=== PATIENT | female | born 1975 | race Caucasian/White ===

== ENCOUNTER 2023-05-17 08:35 | Outpatient (CLI) | payer OTHER, SELFPAY ==
[2023-05-17 09:10] LABS: Hematocrit 40.3 % (37.0-47.0); Hemoglobin 12.2 g/dL (12.0-15.0)
== END 2023-05-17 08:36 | disposition home or self-care (01) ==
LOC: ANHSURGERY 08:39
PROVIDERS: Anesthesiology; PCP Family Medicine; Visit Provider Surgery
DX: Z01.818 Encounter for other preprocedural examination (principal); D64.9 Anemia, unspecified
CPT/HCPCS: 36415; 85014; 85018

== ENCOUNTER 2023-05-18 00:36 | Day surgery (SDC) | payer OTHER, SELFPAY ==
[2023-05-16 09:33] VITALS: BMI 30.2
--- NOTE | 2023-05-16 09:44 | PC.NURSE ---
Addendum entered by Leisa Amaya RN 05/16/23 09:51: PT STATES SHE HAS RECEIVED INSTRUCTIONS FROM DR GREEN OFFICE FOR PREP, INSTRUCTED PT TO BE SURE TO FOLLOW THESE INSTRUCTIONS Original Note: Report to the Outpatient Waiting Room, entrance under the green pavilion located off [facility], at time _1200 on date _05/18/23. Planned Procedure Time: _1400. Time changes happen often and if your time is changed the preop area will call you the afternoon before. - You and your visitor will be asked to self-screen and do not enter if you have any COVID symptoms. - A mask is optional within the hospital at this time. Patients may have clear liquids (water, carbonated beverages, clear teas, apple juice) until 3 hours prior to surgery with a maximum of 20 ounces. - No food from midnight until time of surgery - Infants may have breast milk until 4 hours before surgery, infant formula 6 hours prior to surgery. - Children will be allowed to drink immediately following surgery. If applicable, please bring a bottle or sippy cup to assist with drinking. Juice, water, soda, and popsicles are readily available. For infants on formula, please bring formula the day of surgery. Pacifiers are allowed. Take the following medications with a SIP of water the morning of surgery: NONE DO NOT STOP ANY OF YOUR OTHER PRESCRIPTION MEDICATIONS PRIOR TO SURGERY ?EXCEPT THE FOLLOWING Medications to discontinue per physician VITAMINS/ SUPPLIMENTS Date to take last dose___05/16/23 Please no make-up, nail latvian, hairspray, perfume, deodorant, or body powder the day of surgery. No jewelry (including any body piercings) or valuables the day of surgery, leave them at home. Please take a shower or bath the night before, or the morning of, surgery with HIBICLENS antibacterial soap. Wear comfortable, loose fitting clothing. Children are encouraged to wear pajamas. - Jewelry must be removed prior to entering the operating room. Rings and piercings that are not removed may be cut off. - The hospital will not accept responsibility for valuables. - Please leave all valuables, including medications, at home the day of surgery. If you are going home after surgery, a licensed driver salesman must drive you home. - NO public transportation without another adult if you receive anesthesia. - We recommend that an adult stay with you for 24 hours following discharge. - We also recommend that you do not drive, make important decision, drink alcoholic beverages, or take any drugs that were not prescribed by your health care provider for at least 24 hours after your discharge time. For Pediatric surgeries, we recommend two adults accompany the child home. Follow any additional instructions given to you from your surgeon. If you or anyone in your household have experienced Covid symptoms in the past week, please notify your surgeon or the nurse liaison at the phone number below for possible testing. Telephone instructions given to PATIENT_and asked if any additional questions and then verbalized understanding. Patient advised to call surgeon office or pre surgery nurse liaison [phone] if any additional questions.
[2023-05-18] VITALS (10 sets, daily range): BP systolic 128–151; BP diastolic 49–97; PULSE 65–96; RESP 16–25; TEMP 36.2–37.2; O2SAT 93–100
--- NOTE | 2023-05-18 11:53 | WPDHPUPDATE1 ---
History and Physical Update Update Date/Time: 05/18/23 11:53 History and Physical has been reviewed, including an updated exam of the patient. There are NO changes in the patient's condition. Risks, benefits, and alternatives have been discussed and questions answered. Patient agrees to proceed with procedure.
[2023-05-18] MEDS: ACETAMINOPHEN 500 MG TABLET 1000 MG PO (12:33)
[2023-05-18] MEDS: LACTATED RINGERS 1,000 ML 30 ML IV CONT (12:35)
[2023-05-18] MEDS: KETOROLAC 15 MG/ML VIAL (*BKC) IV PUSH (12:37)
--- NOTE | 2023-05-18 13:10 | P.PNAN_ITS ---
Anes - Initial Pre Proc Eval Procedure: Operation Date: 05/18/23 14:00 Proposed Procedures p Anal Sphincterotomy, Excision of External Thrombosed Hemorrhoids - Teofilo Miller MD Date/Time: 05/18/23 13:10 Surgeon: Teofilo Millre MD Pre Op Diagnosis: anal fissure, External Thrombosed Hemorrhoids Patient Data Age: 47 Gender: F Height: 1.68 m Weight: 85 kg Allergies Allergy/AdvReac Type Severity Reaction Status Date / Time No Known Allergies Allergy Verified 05/16/23 09:32 Home Medications Medication Instructions Recorded Confirmed Type acetaminophen 325 mg capsule 325 mg PO ONCE PRN Pain 05/16/23 05/18/23 History (Tylenol) ascorbic acid (vitamin C) 500 mg 500 mg PO DAILY 05/16/23 05/18/23 History tablet (Vitamin C) ferrous sulfate 325 mg (65 mg 325 mg PO DAILY 05/16/23 05/18/23 History iron) capsule,extended release ibuprofen 200 mg tablet 200 mg PO Q6H PRN Pain 05/16/23 05/18/23 History Patient hx anesthesia problems: none Family hx anesthesia problems: none Results Review: All pre-operative results and documents have been reviewed as part of the pre- operative evaluation. ON LICENSE OF [facility] Past Medical History Medical History Constipation External hemorrhoid, thrombosed Family hx of colon cancer Surgical History Surgical History History of removal of cyst Family History Family History Father Carcinoma of colon Mother Heart disease Diabetes mellitus Hypertension Cerebrovascular accident Social History Social History (Updated 05/08/23 @ 09:55 by Priya Mahoney MA) Smoking status: Never smoker Alcohol intake: current Drinks per week: 8 Alcohol use details: weekly Substance use: never Living arrangements: with family Anes - Eval Final PreProcedure Day of Procedure 05/18/23 13:10 Patient weight: obese Heart: regular rate and rhythm Lungs: clear to auscultation Airway: Mallampati scale class II Neurological: alert and oriented Last oral intake: >/= 8 hours ASA classification: II Emergent: no Anesthetic plan: proceed Anesthesia type and monitoring: general ETT and standard monitoring Results Review: All pre-operative results and documents have been reviewed as part of the pre- operative evaluation. Informed Consent: The patient's anesthetic plan and its attendant risks and benefits were discussed with the patient/family/POA. Questions were solicited and answers provided to the satisfaction of the patient/family/POA.
[2023-05-18] MEDS: ceFAZolin 2 GM/D5W 50 ML 2 GM/50 ML BAG IVPB (13:48)
[2023-05-18] MEDS: BUPIVACAINE/EPINEPHRINE 0.5% 50 ML VIAL 40 ML INFILTRATE (14:13)
--- NOTE | 2023-05-18 15:04 | W.PM.PROC2 ---
Procedure Note - Detailed Date of Procedure 05/18/23 Pre-op Diagnosis anal fissure, External Thrombosed Hemorrhoids Post-op Diagnosis Other (Chronic anal fissure, internal hemorrhoid, thrombosed external hemorrhoids) Procedure Performed Anal sphincterotomy, rubber-band ligation left lateral internal hemorrhoid, excision left anterior thrombosed external hemorrhoid. Surgeon Teofilo Miller MD Design Transferrer Jeromy SUMNER Anesthesia General and Local (0.5% Marcaine with epinephrine) Indications Patient has had chronic rectal pain worse with bowel movement for many years. It improved for a while but then comes back. It has been painful for several months now and despite taking some treatments it has not gotten any better she notices some blood in the stool as well. I saw her in the office and it appears she has a posterior anal fissure as well as multiple external hemorrhoids. The left anterior hemorrhoid appeared to have been a source of previous thrombosed external hemorrhoid. She is taken to surgery now for rectal exam under anesthesia, sphincterotomy, excision of the thrombosed external hemorrhoids. Findings Findings were as above. She had a very deep posterior anal fissure that was actually slightly to the left of midline. She also had the large external hemorrhoids that had previously been thrombosed. Additionally in the left lateral position she had a large internal hemorrhoid which was rubber-band ligated. Description of Procedure Patient was taken to the operating room and induced into general anesthesia. She was then placed in prone marlon-knife position. The buttocks were taped apart. Prep and drape was carried out. I used a Hill-Phoenix anoscope and explored the anal canal before infiltrating any local. The posterior deep fissure was noted. It was to the left of midline but a deep obvious chronic anal fissure. She also had multiple areas of external hemorrhoids. The largest was in the left anterior position. There was also a left lateral internal hemorrhoid. After reviewing the findings, I infiltrated local anesthesia using 0.5% Marcaine with epinephrine and infiltrating 20 cc deep subdermal and 20 cc intra sphincteric around the anal verge. Since there was a fissure somewhat lateral but posterior as well as an internal hemorrhoid in the left lateral position, I went to the right lateral position and made a small mucosal incision over the lower 3rd of the internal sphincter muscle. I was then able to dissect out the internal sphincter muscle and placed a curved clamp under it. I then used the cautery to divide the sphincter muscle. After dividing this, it was very easy to place a medium Hill-Phoenix in the rectum or as previously it was difficult. I then turned my attention to the internal hemorrhoids in the left lateral position. I used a rubber-band ligate her and ligated this internal hemorrhoid. Finally the left anterior complex of external hemorrhoids which did appear to have previous thrombosis were excised. The wound was closed with running locking 3-0 chromic. We then checked the anal canal for any bleeding. I did not see any. We dressed the wound with Xeroform gauze over the rectum and bulky fluffs. Dressing was taped in place with Medipore tape and Promise panties were placed. The patient was returned to a supine position awakened, extubated and taken to recovery in good condition. Sponge and needle counts were correct x2. Estimated Blood Loss -5 Drains No Packing No Pathology Yes (Left anterior thrombosed external hemorrhoid) Complications No immediate complications Condition Stable Disposition PACU [facility] Billing Surgery - Charge Forward: Surgery Billing (Anal sphincterotomy, rubber-band ligation internal hemorrhoid, excision thrombosed external hemorrhoids.)
[2023-05-18] MEDS: fentaNYL CITRATE INJ (*CRX) 100 MCG/2 ML VIAL 25 MCG IV PUSH ×3 (15:35→15:49)
[2023-05-18] MEDS: oxyCODONE HCL (*CRX) 5 MG TAB IR PO (16:21)
== END 2023-05-18 17:05 | disposition home or self-care (01) ==
PROVIDERS: PCP Family Medicine; Visit Provider Surgery
PROC: (CPT 46221; principal; 2023-05-18 14:00)
DX: K64.4 Residual hemorrhoidal skin tags (principal); K64.5 Perianal venous thrombosis; K60.1 Chronic anal fissure; E66.9 Obesity, unspecified; Z68.29 Body mass index [BMI] 29.0-29.9, adult; Z80.0 Family history of malignant neoplasm of digestive organs; Z82.49 Family history of ischemic heart disease and other diseases of the circulatory system
CPT/HCPCS: 46221; 46320; 88304; A9270; J0330; J0690; J1100; J1885; J2250; J2405; J2704; J3010; J7120

== ENCOUNTER 2023-07-10 16:03 | Emergency (ER) | payer OTHER, SELFPAY ==
[2023-07-10 16:36] VITALS: BP 153/96; PULSE 74; RESP 16; TEMP 36.6; O2SAT 96
--- NOTE | 2023-07-10 21:04 | PC.NURSE ---
Pt called back to room but left without being seen.
== END 2023-07-10 21:04 | disposition left against medical advice (07) ==
PROVIDERS: PCP Family Medicine
DX: I10 Essential (primary) hypertension (principal)
CPT/HCPCS: 99199

== ENCOUNTER 2024-12-06 00:40 | Day surgery (SDC) | payer OTHER, SELFPAY ==
[2024-11-26 09:55] VITALS: BMI 28.4
[2024-12-06 07:49] VITALS: BP 129/88; PULSE 77; RESP 16; TEMP 36.7; O2SAT 97
[2024-12-06 07:56] LABS: BEDSIDEPREGUCG Negative (Negative)
[2024-12-06] MEDS: LACTATED RINGERS 1,000 ML 150 ML IV CONT (08:00)
--- NOTE | 2024-12-06 08:40 | WPDANESEPPF ---
Anes - Initial Pre Proc Eval Procedure: Operation Date: 12/06/24 09:00 Proposed Procedures p Screening Colonoscopy - Ramesh Sanders MD Date/Time: 12/06/24 08:40 Surgeon: Ramesh Sanders MD Pre Op Diagnosis: Screening Patient Data Age: 49 Gender: F Height: 1.68 m Weight: 82.1 kg Last Vital Signs Temp 36.7 C 12/06/24 07:49 Pulse 77 12/06/24 07:49 Resp 16 12/06/24 07:49 BP 129/88 12/06/24 07:49 Pulse Ox 97 12/06/24 07:49 O2 Del Method Room Air 12/06/24 07:49 Allergies Allergy/AdvReac Type Severity Reaction Status Date / Time No Known Allergies Allergy Verified 12/06/24 07:44 Home Medications ?Medication ?Instructions ?Recorded ?Confirmed ?Type acetaminophen 325 mg capsule 325 mg PO ONCE PRN Pain 05/16/23 11/26/24 History (Tylenol) ascorbic acid (vitamin C) 500 mg 500 mg PO DAILY 05/16/23 12/06/24 History tablet (Vitamin C) ferrous sulfate 325 mg (65 mg 325 mg PO DAILY 05/16/23 12/06/24 History iron) capsule,extended release ibuprofen 200 mg tablet 200 mg PO Q6H PRN Pain 05/16/23 11/26/24 History amlodipine 2.5 mg tablet 2.5 mg PO DAILY 11/26/24 12/06/24 History cholecalciferol (vitamin D3) 25 100 mcg PO DAILY 11/26/24 12/06/24 History mcg (1,000 unit) capsule losartan 100 mg tablet 100 mg PO DAILY 11/26/24 12/06/24 History phentermine 37.5 mg tablet 37.5 mg PO DAILY 11/26/24 12/06/24 History Laboratory Tests 12/06/24 07:53 POC Urine HCG, Qual Negative (Negative) Patient hx anesthesia problems: none Family hx anesthesia problems: none Results Review: All pre-operative results and documents have been reviewed as part of the pre-operative evaluation. [facility] [place] Past Medical History Medical History Hypertension Constipation External hemorrhoid, thrombosed Family hx of colon cancer Surgical History Surgical History Hx of rectal sphincterotomy Anal sphincterotomy, rubber-band ligation left lateral internal hemorrhoid, excision left anterior thrombosed external hemorrhoid 05/18/23 BETINA History of removal of cyst Family History Family History Father Carcinoma of colon Mother Heart disease Diabetes mellitus Hypertension Cerebrovascular accident Social History Social History Smoking status: Never smoker Alcohol intake: current Drinks per week: 5 Alcohol use details: Wine Substance use: never Substance use type: does not use Living arrangements: with family Spiritual care concerns: No Anes - Eval Final PreProcedure Day of Procedure 12/06/24 08:40 Patient weight: overweight Heart: regular rate and rhythm Lungs: clear to auscultation Airway: Mallampati scale class 1 Neurological: alert and oriented Last oral intake: >/= 8 hours ASA classification: II Emergent: no Anesthetic plan: proceed Anesthesia type and monitoring: general GIVS and standard monitoring Results Review: All pre-operative results and documents have been reviewed as part of the pre-operative evaluation. Informed Consent: The patient's anesthetic plan and its attendant risks and benefits were discussed with the patient/family/POA. Questions were solicited and answers provided to the satisfaction of the patient/family/POA.
--- NOTE | 2024-12-06 08:46 | PM.IMHP ---
H&P: HPI History of Present Illness Date/Time: 12/06/24 08:46 Chief Complaint: Family history of colon cancer Narrative: This patient has family history of colorectal cancer. her father had colorectal cancer at age 60. This is her 1st colonos Review of Systems Review of Systems: All systems reviewed & are unremarkable except as noted in HPI and below PMFSH Past Medical History Medical History Hypertension Constipation External hemorrhoid, thrombosed Family hx of colon cancer Surgical History Surgical History Hx of rectal sphincterotomy Anal sphincterotomy, rubber-band ligation left lateral internal hemorrhoid, excision left anterior thrombosed external hemorrhoid 05/18/23 BETINA History of removal of cyst Family History Family History Father Carcinoma of colon Mother Heart disease Diabetes mellitus Hypertension Cerebrovascular accident Social History Social History Smoking status: Never smoker Alcohol intake: current Drinks per week: 5 Alcohol use details: Wine Substance use: never Substance use type: does not use Living arrangements: with family Spiritual care concerns: No Meds Home Medications and Allergies Home Medications ?Medication ?Instructions ?Recorded ?Confirmed ?Type acetaminophen 325 mg capsule 325 mg PO ONCE PRN Pain 05/16/23 11/26/24 History (Tylenol) ascorbic acid (vitamin C) 500 mg 500 mg PO DAILY 05/16/23 12/06/24 History tablet (Vitamin C) ferrous sulfate 325 mg (65 mg 325 mg PO DAILY 05/16/23 12/06/24 History iron) capsule,extended release ibuprofen 200 mg tablet 200 mg PO Q6H PRN Pain 05/16/23 11/26/24 History amlodipine 2.5 mg tablet 2.5 mg PO DAILY 11/26/24 12/06/24 History cholecalciferol (vitamin D3) 25 100 mcg PO DAILY 11/26/24 12/06/24 History mcg (1,000 unit) capsule losartan 100 mg tablet 100 mg PO DAILY 11/26/24 12/06/24 History phentermine 37.5 mg tablet 37.5 mg PO DAILY 11/26/24 12/06/24 History Allergies Allergy/AdvReac Type Severity Reaction Status Date / Time No Known Allergies Allergy Verified 12/06/24 07:44 Vital Signs Vital Signs - 24 hr 12/06/24 07:49 Temperature 98.0 F Pulse Rate 77 Respiratory Rate 16 Blood Pressure 129/88 Pulse Oximetry 97 Oxygen Delivery Room Air Exam Const: General: cooperative and healthy appearing Resp: Effort & Inspection: normal respiratory effort and able to speak in complete sentences Auscultation: clear to auscultation bilaterally Cardio: Rate: regular rate Rhythm: regular rhythm GI: Inspection: normal to inspection GI Palp: No No hepatosplenomegaly present Auscultation: normal bowel sounds Rectal Exam: deferred Skin: General skin exam: normal color Psych: Appearance: grossly normal Mental Status: mental status grossly normal Assessment and Plan Assessment and plan (1) Family hx of colon cancer: Code(s): Z80.0 - Family history of malignant neoplasm of digestive organs Status: Acute Assessment and Plan: The patient is deemed a good candidate for the procedure. Consent signed. Will proceed.
[2024-12-06 09:12] VITALS: BP 135/84; PULSE 65; RESP 16; O2SAT 100
[2024-12-06 09:22] VITALS: BP 136/88; PULSE 60; RESP 18; O2SAT 100
[2024-12-06 09:32] VITALS: BP 127/82; PULSE 60; RESP 18; O2SAT 100
== END 2024-12-06 09:45 | disposition home or self-care (01) ==
PROVIDERS: Anesthesiology; PCP Nurse Practitioner Family; Referring Provider Student in an Organized Health Care Education/Training Program; Visit Provider Internal Medicine Gastroenterology
PROC: 0DJD8ZZ Inspection of Lower Intestinal Tract, Via Natural or Artificial Opening Endoscopic (ICD-10-PCS; CPT 45378; principal; 2024-12-06 09:00)
DX: Z12.11 Encounter for screening for malignant neoplasm of colon (principal); I10 Essential (primary) hypertension; Z79.1 Long term (current) use of non-steroidal anti-inflammatories (NSAID); Z98.890 Other specified postprocedural states; Z80.0 Family history of malignant neoplasm of digestive organs; Z82.49 Family history of ischemic heart disease and other diseases of the circulatory system
CPT/HCPCS: 45378; J2003; J2704; J7120

== ENCOUNTER 2025-02-03 11:49 | Outpatient (CLI) | payer OTHER, SELFPAY ==
--- NOTE | ~2025-02-03 | MM_ITS ---
EXAMINATION: MM screening reinaldo BI w keena HISTORY: Screening TECHNIQUE: Craniocaudal and mediolateral oblique 3-D tomosynthesis images were obtained and synthetic 2-D images were generated. CAD analysis was submitted and interpreted. COMPARISON: No prior mammogram is available for comparison at this institution. BREAST PARENCHYMAL COMPOSITION: Not dense: There are scattered areas of fibroglandular density. FINDINGS: There is no mammographic evidence for malignancy in the right breast. There is a mass in the lower inner quadrant of the left breast, anterior third. IMPRESSION: 1. New mass in the lower inner quadrant of the left breast, anterior third. 2. Additional mammographic views and possible breast ultrasound are recommended. BI-RADS Category 0: Incomplete: Needs additional imaging evaluation. Reviewed, dictated and finalized at location B. TECHNICAL LEAD IMPRESSION: 1. New mass in the lower inner quadrant of the left breast, anterior third. 2. Additional mammographic views and possible breast ultrasound are recommended . BI-RADS Category 0: Incomplete: Needs additional imaging evaluation.
== END 2025-02-03 11:50 | disposition home or self-care (01) ==
LOC: MICIMG 11:51
PROVIDERS: PCP Student in an Organized Health Care Education/Training Program; Visit Provider Student in an Organized Health Care Education/Training Program
DX: Z12.31 Encounter for screening mammogram for malignant neoplasm of breast (principal); R92.8 Other abnormal and inconclusive findings on diagnostic imaging of breast
CPT/HCPCS: 77063; 77067